=== PATIENT | female | born 1965 | race Caucasian/White ===

== ENCOUNTER 2019-12-08 08:33 | Outpatient (CLI) | payer BC ==
[2019-12-08 09:31] LABS: BASOPHILS # (AUTO) 0.1 X10'3 (0-0.2); EOSINOPHILS # (AUTO) 0.2 X10'3 (0-0.9); EOSINOPHILS % (AUTO) 3.5 % (0-6); HEMATOCRIT 37.5 % (35.0-45.0); HEMOGLOBIN 12.2 g/dl (12.0-16.0); LYMPHOCYTES # (AUTO) 1.8 X10'3 (1.1-4.8); LYMPHOCYTES % (AUTO) 33.8 % (21-51); MEAN CORPUSCULAR HEMOGLOBIN 25.3 PG (27.0-31.0); MEAN CORPUSCULAR HGB CONC 32.5 g/dL (33.0-36.5); MEAN PLATELET VOLUME 8.7 FL (7.4-10.4); MONOCYTES # (AUTO) 0.4 X10'3 (0-0.9); MONOCYTES % (AUTO) 7.8 % (2-12); NEUTROPHILS # (AUTO) 2.9 X10'3 (1.8-7.7); NEUTROPHILS % (AUTO) 53.9 % (42-75); PLATELET COUNT 235 X10'3 (140-440); RED BLOOD COUNT 4.81 X10'6 (4.20-5.60); RED CELL DISTRIBUTION WIDTH 14.4 % (11.5-14.5); WHITE BLOOD COUNT 5.4 X10'3 (4.5-11.0)
[2019-12-08 09:46] LABS: CLARITY,URINE CLEAR (Clear); COLOR,URINE YELLOW (Yellow); GLUCOSE, URINE NEGATIVE (Neg); KETONES,URINE NEGATIVE (Neg); LEUKOCYTE ESTERASE ,URINE NEGATIVE (Neg); NITRITES, URINE NEGATIVE (Neg); OCCULT BLOOD,URINE NEGATIVE (Neg); PROTEIN,URINE NEGATIVE (Neg); UROBILINOGEN,URINE 0.2 E.U/dL (0.2-1.0)
[2019-12-08 09:51] LABS: ALANINE AMINOTRANSFERASE 24 U/L (12-78); ALBUMIN 3.9 G/DL (3.4-5.0); ALKALINE PHOSPHATASE 92 IU/L (46-116); ANION GAP 8 (8-16); ASPARTATE AMINO TRANSFERASE 22 U/L (10-37); BILIRUBIN,TOTAL 0.6 MG/DL (0.1-1.0); BLOOD UREA NITROGEN 12 MG/DL (7-18); BUN/CREATININE RATIO 13.6 (6.6-38.0); CALCIUM 9.5 MG/DL (8.5-10.1); CHLORIDE 105 MMOL/L (99-107); CHOL/HDL RATIO 2.6 (0.00-4.99); CHOLESTEROL 211 MG/DL (0-200); CREATININE 0.88 MG/DL (0.40-0.90); GLUCOSE 86 MG/DL (70-104); HDL CHOLESTEROL 80 MG/DL (35-60); LDL CHOLESTEROL 112 MG/DL (50-100); POTASSIUM 3.9 MMOL/L (3.5-5.1); SODIUM 141 MMOL/L (135-145); TOTAL CARBON DIOXIDE 27.6 MMOL/L (24-32); TOTAL PROTEIN 7.8 G/DL (6.4-8.2); TRIGLYCERIDES 81 MG/DL (20-135); eGFR 67 ML/MIN
[2019-12-08 09:53] LABS: UA COLLECTION TYPE CLN CATCH MIDSTREAM
== END 2019-12-08 23:59 | disposition home or self-care (01) ==
LOC: LAB 08:33
PROVIDERS: ATTEND Family Medicine
DX: Z00.00 Encounter for general adult medical examination without abnormal findings (principal); M19.042 Primary osteoarthritis, left hand
CPT/HCPCS: 36415; 73130; 80053; 80061; 81003; 84439; 84443; 85025

== ENCOUNTER 2021-02-28 08:22 | Outpatient (CLI) | payer BC ==
[2021-02-28 09:27] LABS: BASOPHILS % (AUTO) 0.6 % (0-1); EOSINOPHILS # (AUTO) 0.2 X10'3 (0-0.9); EOSINOPHILS % (AUTO) 2.8 % (0-6); HEMATOCRIT 37.2 % (35.0-45.0); LYMPHOCYTES # (AUTO) 1.6 X10'3 (1.1-4.8); LYMPHOCYTES % (AUTO) 28.2 % (21-51); MEAN CORPUSCULAR HEMOGLOBIN 25.6 PG (27.0-31.0); MEAN CORPUSCULAR HGB CONC 32.3 g/dL (33.0-36.5); MEAN CORPUSCULAR VOLUME 79.5 FL (78-98); MEAN PLATELET VOLUME 8.2 FL (7.4-10.4); MONOCYTES # (AUTO) 0.4 X10'3 (0-0.9); MONOCYTES % (AUTO) 7.6 % (2-12); NEUTROPHILS # (AUTO) 3.5 X10'3 (1.8-7.7); NEUTROPHILS % (AUTO) 60.8 % (42-75); PLATELET COUNT 295 X10'3 (140-440); RED BLOOD COUNT 4.68 X10'6 (4.20-5.60); RED CELL DISTRIBUTION WIDTH 15.1 % (11.5-14.5); WHITE BLOOD COUNT 5.8 X10'3 (4.5-11.0)
[2021-02-28 09:50] LABS: ALANINE AMINOTRANSFERASE 39 U/L (12-78); ALBUMIN 3.3 G/DL (3.4-5.0); ALBUMIN/GLOBULIN RATIO 0.7 (1.1-1.5); ALKALINE PHOSPHATASE 149 IU/L (46-116); ANION GAP 10 (8-16); ASPARTATE AMINO TRANSFERASE 26 U/L (10-37); BILIRUBIN,TOTAL 0.3 MG/DL (0.1-1.0); BLOOD UREA NITROGEN 11 MG/DL (7-18); BUN/CREATININE RATIO 17.7 (6.6-38.0); CALCIUM 9.7 MG/DL (8.5-10.1); CHLORIDE 104 MMOL/L (99-107); CHOL/HDL RATIO 2.6 (0.00-4.99); CHOLESTEROL 172 MG/DL (0-200); CREATININE 0.62 MG/DL (0.40-0.90); GLUCOSE 83 MG/DL (70-104); HDL CHOLESTEROL 67 MG/DL (35-60); LDL CHOLESTEROL 94 MG/DL (50-100); POTASSIUM 4.1 MMOL/L (3.5-5.1); SODIUM 143 MMOL/L (135-145); TOTAL CARBON DIOXIDE 29.5 MMOL/L (24-32); TOTAL PROTEIN 7.8 G/DL (6.4-8.2); TRIGLYCERIDES 68 MG/DL (20-135); eGFR > 90 ML/MIN
[2021-02-28 09:57] LABS: CLARITY,URINE CLEAR (Clear); COLOR,URINE STRAW (Yellow); GLUCOSE, URINE NEGATIVE (Neg); KETONES,URINE NEGATIVE (Neg); LEUKOCYTE ESTERASE ,URINE NEGATIVE (Neg); NITRITES, URINE NEGATIVE (Neg); OCCULT BLOOD,URINE NEGATIVE (Neg); PROTEIN,URINE NEGATIVE (Neg); UA COLLECTION TYPE CLN CATCH MIDSTREAM; UROBILINOGEN,URINE 0.2 E.U/dL (0.2-1.0)
== END 2021-02-28 23:59 | disposition home or self-care (01) ==
LOC: LAB 08:22
PROVIDERS: ATTEND Family Medicine
DX: Z00.01 Encounter for general adult medical examination with abnormal findings (principal)
CPT/HCPCS: 36415; 80053; 80061; 81003; 84439; 84443; 85025

== ENCOUNTER 2021-05-23 14:42 | Outpatient (CLI) | payer BC | END 2021-05-23 23:59 | disposition home or self-care (01) | LOC: RAD 14:42 | PROVIDERS: ATTEND Family Medicine | DX: E04.2 Nontoxic multinodular goiter (principal) | CPT/HCPCS: 76536 ==

== ENCOUNTER 2021-06-30 08:18 | Outpatient (CLI) | payer BC ==
[2021-07-01 11:50] LABS: THIIODOTHRONINE, FREE, SERUM 3.4 pg/mL (2.0-4.4)
== END 2021-06-30 23:59 | disposition home or self-care (01) ==
LOC: LAB 08:18
DX: E05.90 Thyrotoxicosis, unspecified without thyrotoxic crisis or storm (principal)
CPT/HCPCS: 36415; 84439; 84443; 84445; 84481; 86376

== ENCOUNTER 2021-08-11 08:31 | Outpatient (CLI) | payer BC | END 2021-08-11 23:59 | disposition home or self-care (01) | LOC: LAB 08:31 | PROVIDERS: ATTEND Internal Medicine Endocrinology, Diabetes & Metabolism | DX: E05.90 Thyrotoxicosis, unspecified without thyrotoxic crisis or storm (principal) | CPT/HCPCS: 36415; 84439; 84443; 84481 ==

== ENCOUNTER 2021-10-28 08:29 | Outpatient (CLI) | payer BC | END 2021-10-28 23:59 | disposition home or self-care (01) | LOC: LAB 08:29 | PROVIDERS: ATTEND Internal Medicine Endocrinology, Diabetes & Metabolism | DX: E06.9 Thyroiditis, unspecified (principal) | CPT/HCPCS: 36415; 84439; 84443; 84481 ==

== ENCOUNTER 2022-02-27 10:19 | Outpatient (CLI) | payer BC | END 2022-02-27 23:59 | disposition home or self-care (01) | LOC: RAD 10:19 | PROVIDERS: ATTEND Nurse Practitioner | DX: S99.921S Unspecified injury of right foot, sequela (principal); X58.XXXS Exposure to other specified factors, sequela | CPT/HCPCS: 73610; 73630 ==

== ENCOUNTER 2022-04-28 08:35 | Outpatient (CLI) | payer BC ==
[2022-04-28 09:12] LABS: BASOPHILS # (AUTO) 0.1 X10'3 (0-0.2); BASOPHILS % (AUTO) 1.1 % (0-1); EOSINOPHILS # (AUTO) 0.2 X10'3 (0-0.9); EOSINOPHILS % (AUTO) 4.2 % (0-6); HEMATOCRIT 24.6 % (35.0-45.0); HEMOGLOBIN 7.3 g/dl (12.0-16.0); LYMPHOCYTES # (AUTO) 1.7 X10'3 (1.1-4.8); LYMPHOCYTES % (AUTO) 32.7 % (21-51); MEAN CORPUSCULAR HEMOGLOBIN 19.2 PG (27.0-31.0); MEAN CORPUSCULAR HGB CONC 29.9 g/dL (33.0-36.5); MEAN CORPUSCULAR VOLUME 64.4 FL (78-98); MEAN PLATELET VOLUME 8.3 FL (7.4-10.4); MONOCYTES # (AUTO) 0.4 X10'3 (0-0.9); MONOCYTES % (AUTO) 8.3 % (2-12); NEUTROPHILS # (AUTO) 2.9 X10'3 (1.8-7.7); NEUTROPHILS % (AUTO) 53.7 % (42-75); PLATELET COUNT 279 X10'3 (140-440); RED BLOOD COUNT 3.82 X10'6 (4.20-5.60); RED CELL DISTRIBUTION WIDTH 17.6 % (11.5-14.5); WHITE BLOOD COUNT 5.3 X10'3 (4.5-11.0)
[2022-04-28 09:13] LABS: CLARITY,URINE CLEAR (Clear); COLOR,URINE YELLOW (Yellow); GLUCOSE, URINE NEGATIVE (Neg); KETONES,URINE NEGATIVE (Neg); LEUKOCYTE ESTERASE ,URINE NEGATIVE (Neg); NITRITES, URINE NEGATIVE (Neg); OCCULT BLOOD,URINE NEGATIVE (Neg); PROTEIN,URINE NEGATIVE (Neg); UA COLLECTION TYPE NON-SPECIFIED; UROBILINOGEN,URINE 0.2 E.U/dL (0.2-1.0)
[2022-04-28 09:25] LABS: HEMOGLOBIN A1C 6.1 % (4.5-6.2)
[2022-04-28 09:27] LABS: ANISOCYTOSIS 1+; ELLIPTOCYTES FEW; HYPOCHROMASIA 2+; MICROCYTOSIS 2+; PLATELET ESTIMATE NORMAL
[2022-04-28 09:28] LABS: SCHISTOCYTES FEW
[2022-04-28 09:35] LABS: ALANINE AMINOTRANSFERASE 23 U/L (12-78); ALBUMIN 3.8 G/DL (3.4-5.0); ALBUMIN/GLOBULIN RATIO 1.2 (1.1-1.5); ALKALINE PHOSPHATASE 113 IU/L (46-116); ANION GAP 5 (8-16); ASPARTATE AMINO TRANSFERASE 21 U/L (10-37); BILIRUBIN,TOTAL 0.5 MG/DL (0.1-1.0); BLOOD UREA NITROGEN 11 MG/DL (7-18); BUN/CREATININE RATIO 15.3 (6.6-38.0); CHLORIDE 106 MMOL/L (99-107); CHOL/HDL RATIO 2.3 (0.00-4.99); CHOLESTEROL 167 MG/DL (0-200); CREATININE 0.72 MG/DL (0.40-0.90); GLUCOSE 93 MG/DL (70-104); HDL CHOLESTEROL 74 MG/DL (35-60); LDL CHOLESTEROL 77 MG/DL (50-100); POTASSIUM 3.4 MMOL/L (3.5-5.1); SODIUM 140 MMOL/L (135-145); TOTAL CARBON DIOXIDE 28.6 MMOL/L (24-32); TOTAL PROTEIN 7.1 G/DL (6.4-8.2); TRIGLYCERIDES 106 MG/DL (20-135); eGFR 84 ML/MIN
[2022-04-29 10:34] LABS: THYROID PEROXIDASE AB 10 IU/mL (0-34)
== END 2022-04-28 23:59 | disposition home or self-care (01) ==
LOC: LAB 08:35
PROVIDERS: ATTEND Nurse Practitioner
DX: Z00.00 Encounter for general adult medical examination without abnormal findings (principal)
CPT/HCPCS: 36415; 80053; 80061; 81003; 82306; 82607; 82746; 83036; 84439; 84443; 85008; 85025; 86376

== ENCOUNTER → 2022-06-12 | Outpatient (CLI) | payer BC ==
[2022-06-12 10:15] LABS: BASOPHILS % (AUTO) 0.8 % (0-1); EOSINOPHILS # (AUTO) 0.1 X10'3 (0-0.9); EOSINOPHILS % (AUTO) 2.7 % (0-6); HEMATOCRIT 38.3 % (35.0-45.0); LYMPHOCYTES # (AUTO) 1.6 X10'3 (1.1-4.8); LYMPHOCYTES % (AUTO) 28.1 % (21-51); MEAN CORPUSCULAR HEMOGLOBIN 23.4 PG (27.0-31.0); MEAN CORPUSCULAR HGB CONC 31.2 g/dL (33.0-36.5); MEAN PLATELET VOLUME 9.1 FL (7.4-10.4); MONOCYTES # (AUTO) 0.4 X10'3 (0-0.9); MONOCYTES % (AUTO) 7.7 % (2-12); NEUTROPHILS # (AUTO) 3.4 X10'3 (1.8-7.7); NEUTROPHILS % (AUTO) 60.7 % (42-75); PLATELET COUNT 205 X10'3 (140-440); RED BLOOD COUNT 5.11 X10'6 (4.20-5.60); RED CELL DISTRIBUTION WIDTH 25.8 % (11.5-14.5); WHITE BLOOD COUNT 5.6 X10'3 (4.5-11.0)
[2022-06-12 11:24] LABS: ANISOCYTOSIS 3+; MICROCYTOSIS 1+; PLATELET ESTIMATE NORMAL
[2022-06-12 11:25] LABS: ELLIPTOCYTES FEW; HYPOCHROMASIA 1+; LARGE PLATELETS FEW; TEAR DROP CELLS FEW
[2022-06-12 11:51] LABS: % IRON SATURATION 46 % (11-46); IRON 144 UG/DL (49-151); TOTAL IRON BINDING CAPACITY 314 UG/DL (259-388)
[2022-06-12 11:53] LABS: BILIRUBIN,TOTAL 0.4 MG/DL (0.1-1.0); BLOOD UREA NITROGEN 10 MG/DL (7-18); BUN/CREATININE RATIO 12.5 (6.6-38.0); CALCIUM 9.7 MG/DL (8.5-10.1); FERRITIN 25 NG/ML (8-252); GLUCOSE 79 MG/DL (70-104); POTASSIUM 3.8 MMOL/L (3.5-5.1); SODIUM 139 MMOL/L (135-145); TOTAL CARBON DIOXIDE 28.5 MMOL/L (24-32); eGFR 74 ML/MIN
[2022-06-12 11:54] LABS: ALANINE AMINOTRANSFERASE 25 U/L (12-78); ALBUMIN 4.1 G/DL (3.4-5.0); ALBUMIN/GLOBULIN RATIO 1.2 (1.1-1.5); ALKALINE PHOSPHATASE 109 IU/L (46-116); ASPARTATE AMINO TRANSFERASE 22 U/L (10-37); TOTAL PROTEIN 7.4 G/DL (6.4-8.2)
[2022-06-12 13:39] LABS: ANION GAP 6 (8-16); CHLORIDE 105 MMOL/L (99-107)
== END | disposition home or self-care (01) ==
LOC: LAB 08:57
PROVIDERS: ATTEND Nurse Practitioner
DX: Z00.01 Encounter for general adult medical examination with abnormal findings (principal); I49.9 Cardiac arrhythmia, unspecified; F41.9 Anxiety disorder, unspecified; J30.2 Other seasonal allergic rhinitis; E87.6 Hypokalemia; E06.9 Thyroiditis, unspecified
CPT/HCPCS: 36415; 80053; 82728; 83540; 83550; 85008; 85025

== ENCOUNTER 2022-07-17 08:26 | Outpatient (CLI) | payer BC ==
[2022-07-17 09:16] LABS: BASOPHILS % (AUTO) 0.7 % (0-1); EOSINOPHILS # (AUTO) 0.2 X10'3 (0-0.9); EOSINOPHILS % (AUTO) 2.9 % (0-6); HEMOGLOBIN 12.2 g/dl (12.0-16.0); LYMPHOCYTES # (AUTO) 1.5 X10'3 (1.1-4.8); LYMPHOCYTES % (AUTO) 27.2 % (21-51); MEAN CORPUSCULAR HEMOGLOBIN 25.4 PG (27.0-31.0); MEAN CORPUSCULAR HGB CONC 32.2 g/dL (33.0-36.5); MEAN CORPUSCULAR VOLUME 78.8 FL (78-98); MEAN PLATELET VOLUME 8.8 FL (7.4-10.4); MONOCYTES # (AUTO) 0.4 X10'3 (0-0.9); NEUTROPHILS # (AUTO) 3.3 X10'3 (1.8-7.7); NEUTROPHILS % (AUTO) 61.2 % (42-75); PLATELET COUNT 209 X10'3 (140-440); RED BLOOD COUNT 4.82 X10'6 (4.20-5.60); RED CELL DISTRIBUTION WIDTH 18.8 % (11.5-14.5); WHITE BLOOD COUNT 5.4 X10'3 (4.5-11.0)
[2022-07-17 09:43] LABS: % IRON SATURATION 25 % (11-46); IRON 74 UG/DL (49-151); TOTAL IRON BINDING CAPACITY 297 UG/DL (259-388)
[2022-07-17 10:18] LABS: ANISOCYTOSIS 2+; ELLIPTOCYTES FEW; MICROCYTOSIS 1+; PLATELET ESTIMATE NORMAL
== END 2022-07-17 23:59 | disposition home or self-care (01) ==
LOC: LAB 08:26
PROVIDERS: ATTEND Physician Assistant
DX: D64.9 Anemia, unspecified (principal)
CPT/HCPCS: 36415; 83540; 83550; 85008; 85025

== ENCOUNTER 2022-08-21 08:38 | Day surgery (SDC) | payer BC ==
[~2022-08-21] VITALS: Ht 165.1 cm; Wt 64.5 kg
[2022-08-21 08:50] VITALS: BP 135/49
[2022-08-21] MEDS ORDERED: MULT-1085 PO (08:52)
[2022-08-21] MEDS ORDERED: FERR324T4 PO (08:53)
[2022-08-21] MEDS ORDERED: fentaNYL/PF 50MCG/1 ML 2ML syringe ONE (09:12)
[2022-08-21] MEDS ORDERED: MIDAZolam 1 MG/ML 5ML VIAL ONE (09:12)
[2022-08-21 10:15] VITALS: BP 111/49
[2022-08-21 10:25] VITALS: BP 124/71
[2022-08-21 10:35] VITALS: BP 122/76
[2022-08-21 10:45] VITALS: BP 118/72
== END 2022-08-21 11:00 | disposition home or self-care (01) ==
LOC: GI LAB 08:38
PROVIDERS: ATTEND Internal Medicine Gastroenterology
DX: D50.9 Iron deficiency anemia, unspecified (principal); K52.9 Noninfective gastroenteritis and colitis, unspecified; Z79.899 Other long term (current) drug therapy; K57.30 Diverticulosis of large intestine without perforation or abscess without bleeding; K64.8 Other hemorrhoids; K63.5 Polyp of colon
CPT/HCPCS: 45380; 99152; 99153; J2250; J3010; J7030; Z7512; 45385; A4620; C1889